=== PATIENT | female | born 1955 | race Caucasian/White ===

== ENCOUNTER 2018-08-24 11:26 | Day surgery (SDC) | payer MEDICARE, BC ==
[~2018-08-24 11:26] MED LIST: CEFAZOLIN 1G VIAL IVP ONE; WATER STERILE FOR INJECTION 20 ML VIAL MC ONE
[2018-08-24] MEDS ORDERED: KETOROLAC 30 MG/ML VIAL IVP ONE (11:27)
[2018-08-24] MEDS ORDERED: MIDAZOLAM HCL 2MG/2ML VIAL IV ONE (11:27)
[2018-08-24] MEDS ORDERED: LIDOCAINE 2% MDV (20MG/ML) 20ML VIAL IV ONE (11:27)
[2018-08-24] MEDS ORDERED: FENTANYL PF 100MCG/2ML VIAL IV ONE (11:27)
[2018-08-24] MEDS ORDERED: PROPOFOL 10 MG/ML VIAL IV ONE (11:27)
[2018-08-24] MEDS ORDERED: RINGERS SOLUTION,LACTATED 1,000 ML IV ONE (12:05)
[2018-08-24] MEDS ORDERED: RINGERS SOLUTION,LACTATED 150 ML IV ONE (14:41)
== END 2018-08-24 15:16 | disposition home or self-care (01) ==
LOC: SUR 11:26
PROVIDERS: ATTEND Urology
DX: N30.10 Interstitial cystitis (chronic) without hematuria (principal); R35.0 Frequency of micturition
CPT/HCPCS: 52000; 00910; J1885; J3010; J0690; J7120